=== PATIENT | female | born 1990 | race Two or more races ===

== ENCOUNTER 2025-08-02 13:15 | Outpatient (CLI) | payer OTHER | END 2025-08-02 13:17 | disposition home or self-care (01) | LOC: PRENATAL 13:15 | PROVIDERS: ATTEND Obstetrics & Gynecology Maternal & Fetal Medicine | DX: O44.03 Complete placenta previa NOS or without hemorrhage, third trimester (principal); O36.8130 Decreased fetal movements, third trimester, not applicable or unspecified; O99.213 Obesity complicating pregnancy, third trimester; Z14.8 Genetic carrier of other disease; O26.843 Uterine size-date discrepancy, third trimester; O34.13 Maternal care for benign tumor of corpus uteri, third trimester; Z3A.31 31 weeks gestation of pregnancy ==

== ENCOUNTER → 2025-08-23 06:56 | Outpatient (CLI) | payer OTHER | END | disposition home or self-care (01) | LOC: PRENATAL 06:56 | PROVIDERS: ATTEND Obstetrics & Gynecology Maternal & Fetal Medicine | DX: O26.843 Uterine size-date discrepancy, third trimester (principal); O36.8130 Decreased fetal movements, third trimester, not applicable or unspecified; O99.213 Obesity complicating pregnancy, third trimester; Z14.8 Genetic carrier of other disease; O34.13 Maternal care for benign tumor of corpus uteri, third trimester; O36.5930 Maternal care for other known or suspected poor fetal growth, third trimester, not applicable or unspecified; Z3A.32 32 weeks gestation of pregnancy ==

== ENCOUNTER → 2025-08-30 07:23 | Outpatient (CLI) | payer OTHER | END | disposition home or self-care (01) | LOC: PRENATAL 07:23 | PROVIDERS: ATTEND Obstetrics & Gynecology Maternal & Fetal Medicine | DX: O36.8130 Decreased fetal movements, third trimester, not applicable or unspecified (principal); O36.5930 Maternal care for other known or suspected poor fetal growth, third trimester, not applicable or unspecified; O99.213 Obesity complicating pregnancy, third trimester; Z14.8 Genetic carrier of other disease; O34.13 Maternal care for benign tumor of corpus uteri, third trimester; O43.93 Unspecified placental disorder, third trimester; Z3A.36 36 weeks gestation of pregnancy ==